=== PATIENT | male | born 1995 | race Caucasian/White ===

== ENCOUNTER 2021-07-11 20:24 | Emergency (ER) | payer SELFPAY ==
--- NOTE | 2021-07-11 21:49 | RAD REPORT ---
EXAM DESCRIPTION: RAD - Hand Right 3 View - 07/11/2021 9:41 pm CLINICAL HISTORY: Right hand pain status post injury FINDINGS: No acute fracture or dislocation is seen. Plate and screws affix old fractures third and fourth metacarpals
--- NOTE | 2021-07-11 21:56 | ER ---
Nurse's Notes [facility] Name: Torsten Lara Age: 25 yrs Sex: Male : 1995 Arrival Date: 07/11/2021 Time: 20:45 Bed 12 Private MD: Diagnosis: Contusion of right hand Presentation: 07/11 20:54 Chief complaint: Patient states: fell and landed on right hand, swelling noted to right em hand. Coronavirus screen: Vaccine status: Patient reports being unvaccinated. Ebola Screen: Patient negative for fever greater than or equal to 101.5 degrees Fahrenheit, and additional compatible Ebola Virus Disease symptoms Patient denies exposure to infectious person. Patient denies travel to an Ebola-affected area in the 21 days before illness onset. No symptoms or risks identified at this time. Initial Sepsis Screen: Does the patient meet any 2 criteria? HR > 90 bpm. Does the patient have a suspected source of infection? No. Patient's initial sepsis screen is negative. Risk Assessment: Do you want to hurt yourself or someone else? Patient reports no desire to harm self or others. Onset of symptoms was July 11, 2021. 20:54 Method Of Arrival: Ambulatory em 20:54 Acuity: BEN 4 em 21:49 Note Right hand elevated on pillow. Ice pack applied. df1 Triage Assessment: 21:46 General: Appears in no apparent distress. Pain: Denies pain. Musculoskeletal: df1 Circulation, motion, and sensation intact. Capillary refill < 3 seconds, Range of motion: limited in all extremities, Swelling present in right hand Reports Pain is 0 out of 10 on a pain scale. Injury Description: Swelling noted to top of right hand. MSP's intact. Some limited movement with all digits to right hand. 21:48 General: Behavior is calm, cooperative. df1 Historical: - Allergies: 20:55 No Known Allergies; em - PMHx: 20:55 None; em - PSHx: 20:55 Tonsillectomy; right hand; em - Immunization history:: Client reports having NOT received the Covid vaccine. - Social history:: Smoking status: Patient denies any tobacco usage or history of. Screenin:46 Abuse screen: Denies threats or abuse. Nutritional screening: No deficits noted. df1 Tuberculosis screening: No symptoms or risk factors identified. Fall Risk None identified. Vital Signs: 20:54 BP 136 / 85; Pulse 104; Resp 18; Temp 98.2; Pulse Ox 99% on R/A; Weight 104.33 kg; em Height 6 ft. 0 in. (182.88 cm); 20:54 Body Mass Index 31.19 (104.33 kg, 182.88 cm) em ED Course: 20:45 Patient arrived in ED. cf2 20:50 Lamar Gilliland FNP-C is [facility]. kb 20:50 Phillip Brown MD is Attending Physician. kb 20:55 Triage completed. em 20:55 Arm band placed on. em 21:38 Kirsten Martini is Primary Nurse. df1 21:41 Hand Right 3 View XRAY In Process Unspecified. EDMS 21:48 Patient has correct armband on for positive identification. Bed in low position. Call df1 light in reach. Adult w/ patient. 21:49 Patient is placed in psych hold. df1 22:08 No provider procedures requiring assistance completed. df1 22:10 Patient did not have IV access during this emergency room visit. df1 Administered Medications: No medications were administered Outcome: 21:55 Discharge ordered by . kb 22:08 Discharged to home ambulatory. df1 22:08 Condition: good 22:08 Discharge instructions given to patient, friend, Instructed on discharge instructions, follow up and referral plans. Demonstrated understanding of instructions, follow-up care. 22:10 Patient left the ED. df1 Signatures: Dispatcher [employer] EDPA Lamar Gilliland FNP-C FNP-Ckb Munoz, Edgar, RN RN Almas Lara cf2 Kirsten Martini df1
--- NOTE | 2021-07-11 21:56 | EDPHYS ---
Physician Documentation [facility] Name: Torsten Lara Age: 25 yrs Sex: Male : 1995 Arrival Date: 07/11/2021 Time: 20:45 Bed 12 Private MD: ED Physician Phillip Brown HPI: 07/11 22:37 This 25 yrs old Male presents to ER via Ambulatory with complaints of Hand kb Injury. 22:37 The complaints affect the dorsum of right hand. Context: The problem was sustained at home, resulted from a fall. The patient has not experienced similar symptoms in the past. The patient has not recently seen a physician. 22:37 The patient or guardian reports a contusion, pain, swelling. Onset: The kb symptoms/episode began/occurred just prior to arrival. Modifying factors: The symptoms are alleviated by nothing, the symptoms are aggravated by nothing. Severity of symptoms: At their worst the symptoms were mild, moderate, in the emergency department the symptoms are unchanged. Historical: - Allergies: 20:55 No Known Allergies; em - PMHx: 20:55 None; em - PSHx: 20:55 Tonsillectomy; right hand; em - Immunization history:: Client reports having NOT received the Covid vaccine. - Social history:: Smoking status: Patient denies any tobacco usage or history of. ROS: 22:35 Constitutional: Negative for fever, chills, and weight loss. kb 22:35 MS/extremity: Positive for contusion, ecchymosis, pain, swelling, of the dorsum of right hand. 22:35 All other systems are negative. Exam: 22:35 Constitutional: This is a well developed, well nourished patient who is awake, alert, kb and in no acute distress. Head/Face: Normocephalic, atraumatic. ENT: Moist Mucous membranes Respiratory: Respirations even and unlabored. No increased work of breathing, no retractions or nasal flaring. Skin: Warm, dry with normal turgor. Normal color. Neuro: Awake and alert, GCS 15, oriented to person, place, time, and situation. Moves all extremities. Normal gait. Psych: Awake, alert, with orientation to person, place and time. Behavior, mood, and affect are within normal limits. 22:35 Musculoskeletal/extremity: Extremities: grossly normal except: noted in the dorsum of right hand: contusion, ecchymosis, pain, swelling, ROM: intact in all extremities, Circulation is intact in all extremities. Sensation intact. Vital Signs: 20:54 BP 136 / 85; Pulse 104; Resp 18; Temp 98.2; Pulse Ox 99% on R/A; Weight 104.33 kg; em Height 6 ft. 0 in. (182.88 cm); 20:54 Body Mass Index 31.19 (104.33 kg, 182.88 cm) em MDM: 20:56 Patient medically screened. kb 21:55 Data reviewed: vital signs, nurses notes. Data interpreted: Pulse oximetry: on room air kb is 99 %. Interpretation: normal. Counseling: I had a detailed discussion with the patient and/or guardian regarding: the historical points, exam findings, and any diagnostic results supporting the discharge/admit diagnosis, radiology results, the need for outpatient follow up, a family practitioner, to return to the emergency department if symptoms worsen or persist or if there are any questions or concerns that arise at home. 07/11 20:56 Order name: Hand Right 3 View XRAY; Complete Time: 21:55 kb Administered Medications: No medications were administered Disposition: 07/12 05:52 Co-signature as Attending Physician, Phillip Brown MD. mh7 Disposition Summary: 07/11/21 21:55 Discharge Ordered Location: Home kb Condition: Stable kb Diagnosis - Contusion of right hand kb Followup: kb - With: Emergency Department - When: As needed - Reason: Worsening of condition Followup: kb - With: Private Physician - When: 2 - 3 days - Reason: Recheck today's complaints, Continuance of care, Re-evaluation by your physician Discharge Instructions: - Discharge Summary Sheet kb - Hand Contusion, [id number] kb Forms: - Medication Reconciliation Form kb - Thank You Letter kb - Antibiotic Education kb - Prescription Opioid Use kb Signatures: Dispatcher [employer] Lamar Strong FNP-C FNP-Ckb Munoz, Edgar, RN RN Phillip Colunga MD MD mh7
[2021-07-11 23:31] VITALS: BP 136/85; TEMP 98.2; O2SAT 99
== END 2021-07-11 22:10 | disposition home or self-care (01) ==
LOC: ER 20:24
DX: S60.221A Contusion of right hand, initial encounter (principal); W19.XXXA Unspecified fall, initial encounter; Y92.009 Unspecified place in unspecified non-institutional (private) residence as the place of occurrence of the external cause
CPT/HCPCS: 99283

== ENCOUNTER 2024-10-30 15:15 | Emergency (ER) | payer BC, SELFPAY ==
--- OUTSIDE RECORDS SUMMARY | 2024-10-30 15:18 | XMS REPORT | Continuity of Care Document ---
Author Name Unknown Address [address] [facility] [place] [address] [facility] Address [address] [facility] [address] [place] [address] Care Team Providers Care Electric Distribution Engineer Name Role Phone Pcp, Patient Does Not Have A Primary Care Physic robel Clarisa Lozano Attending Clinician [phone] Unknown, Attending Attending Clinician UnavailCLARISA Gaston Attending Clinician Unavailable Lab, Adc Fam Pob I Attending Clinician Yareli Armenta Attending Clinician [phone] YARELI OLMOS Attending Clinician Unavailable Payers Payer Name Policy Type Policy Number Effective Date Expirati on Date Source Allergies, Adverse Reactions, Alerts Allergy Name Allergy Type Status Severity Reaction(s) Onset Date Inactive Date Treating Clinician Comments Source NO KNOWN ALLERGIE S Drug Class Active [facility] Social History Social Habit Start Date Stop Date Quantity Comments Source [facility] Tobacco use and exposure 2024-04-10 00:00:00 2024-04-10 00:00:00 Smokeless tobacco non-user [facility] History of Social function 2024-04-10 00:00:00 2024-04-10 00:00:00 [facility] Sex assigned at 1995 00:00:00 1995 00:00:00 [facility] Smoking Status Start Date Stop Date Source Unknown if ever smoked [facility] Never smoked tobacco [facility] Medications Ordered Medication Name Filled Medication Name Start Date Stop Date Current Medication? Ordering Clinician Indication Dosage Frequency Signature (SIG) Comments Components Source erythromyci n 5 mg/gram (0.5 %) ophthalmic ointment 04-10 00:00: 00 04-18 04:59 :00 No [id number] .[id number][in_u s] Place 0.5 Inches in right eye 4 (four) times daily for 7 days. [facility] Vital Signs Vital Name Observation Time Observation Value Comments S april Systolic blood pressure 2024-04-10 17:26:00 131 mm[Hg] [facility] Diastolic blood pressure 2024-04-10 17:26:00 84 mm[Hg] [facility] Heart rate 2024-04-10 17:26:00 102 /min [facility] Body temperature 2024-04-10 17:26:00 36.72 Anna [facility] Respiratory rate 2024-04-10 17:26:00 17 /min [facility] Body weight 2024-04-10 17:26:00 117.028 kg [facility] Oxygen saturation in Arterial blood by Pulse oximetry 2024-04-10 17:26:00 96 /min [facility] Encounters Start Date/Time End Date/Time Encounter Type Admission Type Attending Clinicians Care Facility Care Department Encounter ID Source 2024-04-10 12:00:00 2024-04-10 12:58:50 Urgent Care Clarisa Blanton Unknown, Attending [facility] [id number] [facility] 2024-04-10 12:00:00 2024-04-10 12:58:50 Outpatient R CLARISA BLANTON [facility] [id number] [facility] 2020-10-12 11:24:15 2020-10-12 11:44:15 Laboratory Only Lab, [facility] [id number] [facility] 2020-10-12 11:20:00 2020-10-12 11:20:00 Outpatient YARELI JIMENEZ [facility] [id number] [facility]
--- NOTE | 2024-10-30 16:33 | RAD REPORT ---
Exam:Foot Right 3 View CLINICAL HISTORY: Right foot pain FINDINGS: No fracture or dislocation seen Mild hallux valgus deformity
[2024-10-30 19:08] LABS: Absolute Eosinophils 0.2 K/uL (0-0.5); Absolute Lymphocytes (CBC) 2.5 K/uL (0.7-4.9); Absolute Monocytes 0.9 K/uL (0.1-1.3); Absolute Neutrophil 10.1 K/uL (1.8-8.0); Basophils % 0.3 % (0-1.3); Eosinophils % 1.3 % (0-4.4); Hematocrit 47.5 % (39.6-49.0); Hemoglobin 16.3 g/dL (13.6-17.9); Lymphocytes % 18.3 % (15.3-44.8); MCHC 34.3 g/dL (32.0-36.0); MCV 87.5 fL (80-100); MPV 8.5 fL (7.6-11.3); Monocytes % 6.3 % (3.3-12.3); Neutrophils % 73.8 % (41.7-73.7); Nucleated Red Blood Cells % 0.1 % (0-0); Platelets 304 thou/uL (152-406); RBC Red Blood Cell Count 5.43 M/uL (4.33-5.43); Red Cell Distribution Width 13.3 % (12.1-15.2)
[2024-10-30] MEDS ORDERED: ACETAMINOPHEN 500 MG TAB ONE (19:12)
[2024-10-30] MEDS ORDERED: NA CHLORIDE 0.9% 1,000 ML ONE (19:12)
[2024-10-30] MEDS ORDERED: CEFTRIAXONE 1000 MG/VIAL ONE (19:12)
[2024-10-30 19:15] LABS: PT Prothrombin Time 11.7 SECONDS (9.4-12.5); PTT, Activated Partial Thromb 35.1 SECONDS (24.3-36.9); Protime INR 1.05
[2024-10-30 19:26] LABS: Albumin 4.6 g/dL (3.4-5.0); Anion Gap 11.4 mEq/L (5.0-15.0); Bilirubin Total 1.1 mg/dL (0.2-1.0); Globulin 4.4 g/dL (2.3-3.5); Potassium 3.4 mEq/L (3.5-5.1)
--- NOTE | 2024-10-30 19:31 | ER ---
Nurse's Notes [facility] Name: Torsten Lara Age: 29 yrs Sex: Male : 1995 Arrival Date: 10/30/2024 Time: 15:15 Bed 23 [facility] MD: Diagnosis: Cellulitis of right toe Presentation: 10/30 15:23 Chief complaint: Right great toe pain and redness x 2 days. Coronavirus screen: At this hb time, the client does not indicate any symptoms associated with coronavirus-19. Ebola Screen: No symptoms or risks identified at this time. Initial Sepsis Screen: Does the patient meet any 2 criteria? No. Patient's initial sepsis screen is negative. Does the patient have a suspected source of infection? No. Patient's initial sepsis screen is negative. Risk Assessment: Do you want to hurt yourself or someone else? Patient reports no desire to harm self or others. Onset of symptoms was October 29, 2024. 15:23 Method Of Arrival: Ambulatory hb 15:23 Acuity: BEN 3 hb Historical: - Allergies: 15:23 No Known Allergies; hb - Home Meds: 15:25 None [Active]; hb - PMHx: 15:25 Hypertension; hb - PSHx: 15:23 right hand; Tonsillectomy; hb - Immunization history:: Adult Immunizations up to date. - Infectious Disease History:: Denies. - Social history:: Smoking status: Reported history of juuling and/or vaping. Screenin:45 [facility] ED Fall Risk Assessment (Adult) History of falling in the last 3 months, jb4 including since admission No falls in past 3 months (0 pts) Confusion or Disorientation No (0 pts) Intoxicated or Sedated No (0 pts) Impaired Gait No (0 pts) Mobility Assist Device Used No (0 pt) Altered Elimination No (0 pt) Score/Fall Risk Level 0 - 2 = Low Risk Oriented to surroundings, Maintained a safe environment. Abuse screen: Denies threats or abuse. Nutritional screening: No deficits noted. Tuberculosis screening: No symptoms or risk factors identified. Assessment: 18:05 General: Appears in no apparent distress. comfortable, Behavior is calm, cooperative, jb4 appropriate for age. Pain: Denies pain. Neuro: Level of Consciousness is awake, alert, obeys commands, Oriented to person, place, time, situation. Cardiovascular: Patient's skin is warm and dry. Derm: Skin is intact, Skin is pink, warm \T\ dry. Musculoskeletal: Circulation, motion, and sensation intact. Range of motion: intact in all extremities, Swelling present in right first toe. 19:00 Reassessment: Patient appears in no apparent distress at this time. Patient and/or jb4 family updated on plan of care and expected duration. Pain level reassessed. Patient is alert, oriented x 3, equal unlabored respirations, skin warm/dry/pink. 20:00 Reassessment: Patient appears in no apparent distress at this time. Patient and/or jb4 family updated on plan of care and expected duration. Pain level reassessed. Patient is alert, oriented x 3, equal unlabored respirations, skin warm/dry/pink. d/c pending completion of IV fluids. Vital Signs: 15:23 BP 158 / 100; Pulse 130; Resp 18; Temp 98.8(TE); Pulse Ox 98% on R/A; Weight 131.54 kg; hb Height 6 ft. 1 in. ; Pain 6/10; 19:29 Pulse 105; dr5 19:45 BP 156 / 101; Pulse 104; Resp 16; Pulse Ox 100% on R/A; jb4 15:23 Body Mass Index 38.26 (131.54 kg, 185.42 cm) hb 15:23 Pain Scale: Adult hb ED Course: 15:18 Patient arrived in ED. im 15:23 Nader Kc MD is Attending Physician. ec2 15:25 Triage completed. hb 15:25 Arm band placed on. hb 16:21 Foot Right 3 View XRAY In Process Unspecified. EDMS 18:23 Piotr Hanley FNP-C is PHCP. dr5 20:17 Patient has correct armband on for positive identification. Bed in low position. Call jb4 light in reach. Side rails up X 1. Provided Education on: discharge instructions.. 20:17 No provider procedures requiring assistance completed. IV discontinued, intact, jb4 bleeding controlled, No redness/swelling at site. Pressure dressing applied. Administered Medications: 19:15 Drug: Acetaminophen PO 1000 mg PO once Route: PO; jb4 20:16 Follow up: Response: No adverse reaction jb4 19:15 Drug: NS 0.9% IV 1000 ml IV at 1000 ml once; to be given as a bolus over 60 minutes jb4 Route: IV; Rate: 1000 ml; Site: right forearm; 20:16 Follow up: Response: No adverse reaction; IV Status: Completed infusion; IV Intake: jb4 1000ml 19:30 Drug: Rocephin IV 1 grams IV at bolus once; Given slow IV push per pharmacy jb4 instructions Route: IV; Rate: bolus; Site: right forearm; 19:33 Follow up: Response: No adverse reaction; IV Status: Completed infusion jb4 Medication: 19:45 VIS not applicable for this client. jb4 Intake: 20:16 IV: 1000ml; Total: 1000ml. jb4 Outcome: 19:31 Discharge ordered by . dr5 20:17 Patient left the ED. jb4 Signatures: Dispatcher [employer] EDIoana Gonsalez, RN RN Rodri Taylor RN RN jb4 Birgit Ibrahim Edwin, MD MD ec2 Piotr Hanley, AIRPORT SECURITY SCREENER-C AIRPORT SECURITY SCREENER-Cdr5 Corrections: (The following items were deleted from the chart) 15:25 15:23 PMHx: None; hb hb 20:17 20:00 Reassessment: Patient appears in no apparent distress at this time. Patient jb4 and/or family updated on plan of care and expected duration. Pain level reassessed. Patient is alert, oriented x 3, equal unlabored respirations, skin warm/dry/pink. jb4
--- NOTE | 2024-10-30 19:31 | EDPHYS ---
Physician Documentation [facility] Name: Torsten Lara Age: 29 yrs Sex: Male : 1995 Arrival Date: 10/30/2024 Time: 15:15 Bed 23 Private MD: ED Physician Nader Kc HPI: 10/30 18:12 This 29 yrs old Male presents to ER via Ambulatory with complaints of Toe Injury - ec2 right. 18:12 Patient arrives today for evaluation of right great toe redness and irritation. States ec2 he has been having some pain with ambulation. No specific trauma or injury. No fevers or chills, no nausea or vomiting.. Historical: - Allergies: 15:23 No Known Allergies; hb - Home Meds: 15:25 None [Active]; hb - PMHx: 15:25 Hypertension; hb - PSHx: 15:23 right hand; Tonsillectomy; hb - Immunization history:: Adult Immunizations up to date. - Infectious Disease History:: Denies. - Social history:: Smoking status: Reported history of juuling and/or vaping. ROS: 18:12 Constitutional: as per hpi ec2 Exam: 18:12 Constitutional: GEN: NAD Head: atraumatic Eyes: EOMI Ears: External ears are ec2 normal. CV: tachycardia LUNGS: no respiratory distress ABD: non-distended SKIN: Erythema noted to the medial aspect of the right base of the great toe. MSK: no evidence of trauma Vital Signs: 15:23 BP 158 / 100; Pulse 130; Resp 18; Temp 98.8(TE); Pulse Ox 98% on R/A; Weight 131.54 kg; hb Height 6 ft. 1 in. ; Pain 6/10; 19:29 Pulse 105; dr5 19:45 BP 156 / 101; Pulse 104; Resp 16; Pulse Ox 100% on R/A; jb4 15:23 Body Mass Index 38.26 (131.54 kg, 185.42 cm) hb 15:23 Pain Scale: Adult hb MDM: 18:03 Medical Screening Exam initiated ec2 18:13 Data reviewed: vital signs, nurses notes. ED course: Patient arrives today for ec2 evaluation of right great toe irritation and erythema. Examination here skin findings above. Will obtain septic workup and. Will treat with ceftriaxone. X-ray shows no bony destruction.. 18:23 Transition of care: Care assumed from Nader Kc MD. dr5 19:31 ED course: Reevaluated patient. Patient is well-appearing. Patient had Rocephin IV push dr5 and liter of fluids. Heart rate came down to 105. Will send patient home with Keflex and Bactrim and have patient follow-up with primary care doctor this week. Return to ER for worsening conditions.. 10/30 18:12 Order name: Blood Culture Adult (2); Complete Time: 02:35 ec2 10/30 18:12 Order name: CBC with Diff; Complete Time: 19:11 ec2 10/30 18:12 Order name: CMP; Complete Time: 19:26 ec2 10/30 18:12 Order name: Lactate w/ 2H reflex if indic.; Complete Time: 19:29 ec2 10/30 18:12 Order name: Protime (+inr); Complete Time: 19:15 ec2 10/30 18:12 Order name: Ptt, Activated; Complete Time: 19:15 ec2 10/30 19:31 Order name: Ghost Lactate-NO COLLECT Timer; Complete Time: 02:35 EDMS 10/30 15:24 Order name: Foot Right 3 View XRAY; Complete Time: 16:38 ec2 10/30 18:12 Order name: EKG; Complete Time: 18:12 ec2 10/30 18:12 Order name: Accucheck; Complete Time: 19:15 ec2 10/30 18:12 Order name: IV Saline Lock - Large Bore; Complete Time: 19:11 ec2 10/30 18:12 Order name: Labs collected and sent; Complete Time: 19:11 ec2 10/30 18:12 Order name: O2 Per Protocol; Complete Time: 19:11 ec2 10/30 18:12 Order name: O2 Sat Monitoring; Complete Time: 19:11 ec2 10/30 18:12 Order name: Vital Signs; Complete Time: 19:11 ec2 Administered Medications: 19:15 Drug: Acetaminophen PO 1000 mg PO once Route: PO; jb4 20:16 Follow up: Response: No adverse reaction jb4 19:15 Drug: NS 0.9% IV 1000 ml IV at 1000 ml once; to be given as a bolus over 60 minutes jb4 Route: IV; Rate: 1000 ml; Site: right forearm; 20:16 Follow up: Response: No adverse reaction; IV Status: Completed infusion; IV Intake: jb4 1000ml 19:30 Drug: Rocephin IV 1 grams IV at bolus once; Given slow IV push per pharmacy jb4 instructions Route: IV; Rate: bolus; Site: right forearm; 19:33 Follow up: Response: No adverse reaction; IV Status: Completed infusion jb4 Disposition Summary: 10/30/24 19:31 Discharge Ordered Notes: Location: Home dr5 Condition: Stable dr5 Diagnosis - Cellulitis of right toe dr5 Followup: dr5 - With: Emergency Department - When: As needed - Reason: Worsening of condition Followup: dr5 - With: Private Physician - When: 1 - 2 days - Reason: Recheck today's complaints, Continuance of care, Re-evaluation by your physician Discharge Instructions: - Discharge Summary Sheet dr5 - Cellulitis, Adult dr5 Forms: - Work release form lg3 - Medication Reconciliation Form dr5 - Antibiotic Education dr5 - Patient Portal Instructions dr5 - Leadership Thank You Letter dr5 Prescriptions: - Cephalexin 500 mg Oral Capsule - take 1 capsule ORAL route every 6 hours for 10 days; 40 capsule; Refills: 0, dr5 Product Selection Permitted - Bactrim DS 800-160 mg Oral Tablet - take 1 tablet ORAL route every 12 hours for 7 days; 14 tablet; Refills: 0, dr5 Product Selection Permitted Addendum: 11/04/2024 02:35 I reviewed the patient's care provided by Advanced Practice Provider \T\ agree w/ the ec2 diagnosis \T\ care plan. I personally saw the pt \T\ performed a substantive portion of t he visit, incldng all aspects of the (History/Exam/Medical Decision Making). Signatures: Dispatcher [employer] EDIoana Gonsalez RN RN hb Bryson, James, RN RN jb4 Nader Kc MD MD ec2 Piotr Hanley, PROP MAKING SUPERVISOR-C PROP MAKING SUPERVISOR-Cdr5 Corrections: (The following items were deleted from the chart) 10/30 15:25 15:23 PMHx: None; hb hb 19:49 18:12 Cardiac monitoring ordered. 2 jb4 19:49 18:12 EKG - Nurse/Tech ordered. 2 jb4
[2024-10-30 20:40] VITALS: TEMP 98.8
[2024-10-30 20:42] VITALS: BP 156/101; O2SAT 100
== END 2024-10-30 20:17 | disposition home or self-care (01) ==
LOC: ER 15:15
DX: L03.031 Cellulitis of right toe (principal); F17.290 Nicotine dependence, other tobacco product, uncomplicated; I10 Essential (primary) hypertension; M79.674 Pain in right toe(s)
CPT/HCPCS: 96361; 87040 ×2; 85025; 36415; 85610; 83605; 85730; 80053; 73630; 96374; 99284; J7030; J0696